=== PATIENT | male | born 1935 | race Caucasian/White ===

== ENCOUNTER 2017-07-16 08:35 | Day surgery (SDC) | payer BC, MEDICARE ==
[2017-07-16] MEDS ORDERED: Moxifloxacin 0.5% Ophth Soln 3 ML Bottle EYELF ONE ×2 (09:00→10:40)
[2017-07-16] MEDS ORDERED: Cataract Ophth Solution EYELF ONE (09:00)
[2017-07-16] MEDS ORDERED: Lidocaine 4% 5 ML Amp EYELF ONE ×3 (09:00→10:22)
[2017-07-16] MEDS ORDERED: Sodium Chloride 0.9% 10 ML Syringe FLUSH PRN (09:00)
[2017-07-16] MEDS ORDERED: Lidocaine 1% 30 ML SDV ONE ×2 (09:31→10:39)
[2017-07-16] MEDS ORDERED: Povidone-Iodine 5% Sterile Ophth Soln 30 ML Bottle EYELF ONE (10:22)
[2017-07-16] MEDS ORDERED: Balanced Salt Solution Ophth Irrig 500 ML Bottle IOCULAR ONE (10:32)
[2017-07-16] MEDS ORDERED: EPINEPHrine 1 MG/ML SDV ONE (10:39)
[2017-07-16] MEDS ORDERED: prednisoLONE Acetate 1% Ophth Susp 5 ML Bottle EYELF ONE (10:40)
--- NOTE | 2017-07-16 10:49 | PCM.OPNOTE ---
- General Post-Op/Procedure Note Date of Surgery/Procedure: 07/16/17 Operative Procedure(s): Cataract extraction with lens implant, left eye Findings: As above Pre Op Diagnosis: Combined forms of age-related cataract, left eye Post-Op Diagnosis: Same Anesthesia Technique: Local Primary Surgeon: Raheel Etienne Pathology: None EBL in mLs: 0 Complications: None Condition: Good Free Text/Narrative:: PROCEDURE: After the risks and benefits of the procedure were explained informed consent was obtained from the patient and the patient was taken to the operating room. The patient was given topical Lidocaine 4% drops in the left eye. The patient was then prepped and draped in the sterile [facility] fashion. A wire lid speculum was placed in the left eye. A clear cornea temporal approach was used. A 7515 penobscot blade was used to make a paracentesis site around 5:00. Preservative-free Lidocaine 1% was injected intracamerally. Viscoelastic was placed in the anterior chamber. A 2.5 mm keratome blade was used to make a clear corneal incision around 3:00. A cystotome needle and Utrata forceps were used to perform continuous curvilinear capsulorhexis. Balanced Salt Solution was used to perform hydrodissection and hydrodelineation. The lens nucleus was removed using the divide and conquer phacoemulsification technique. Cumulative dissipated energy was 2.82. Remaining cortex was removed using irrigation- aspiration. Viscoelastic was placed in the capsular bag. PCBOO 19.0 diopter lens was then placed in the capsular bag. Remaining viscoelastic was removed using irrigation-aspiration. The lens was well centered in the capsular bag. The paracentesis and corneal incision were found to be water-tight. The patient was given topical Prednisolone and Vigamox drops. The speculum was removed and a shield was placed over the left eye. The patient was taken to recovery in stable condition. I certify that I was present for and performed the entire operative procedure. Raheel Etienne M.D.
== END 2017-07-16 11:41 | disposition home or self-care (01) ==
LOC: DL.SDS 08:35
PROVIDERS: ATTEND Ophthalmology
DX: H25.812 Combined forms of age-related cataract, left eye (principal); E78.5 Hyperlipidemia, unspecified; E78.1 Pure hyperglyceridemia; K26.9 Duodenal ulcer, unspecified as acute or chronic, without hemorrhage or perforation; Z87.891 Personal history of nicotine dependence; Z79.82 Long term (current) use of aspirin; Z79.899 Other long term (current) drug therapy; Z88.8 Allergy status to other drugs, medicaments and biological substances
CPT/HCPCS: 66984; A9270; J0171; J7050; V2632